=== PATIENT | male | born 1950 | race Caucasian/White ===

== ENCOUNTER → 2019-06-23 | Outpatient (CLI) | payer MEDICARE, OTHER | LOC: COL.RAD 09:45 | DX: Z01.812 Encounter for preprocedural laboratory examination (principal); R22.1 Localized swelling, mass and lump, neck; R91.8 Other nonspecific abnormal finding of lung field | CPT/HCPCS: Q9967 ==

== ENCOUNTER 2019-09-08 08:26 | Inpatient (IN) | payer MEDICARE, OTHER ==
[2019-09-08] VITALS (494 sets, daily range): BP systolic 90–118; BP diastolic 51–80; PULSE 114–126; TEMP 98.3–99.1; O2SAT 84–100
[~2019-09-08] VITALS: Ht 167.6 cm; Wt 85.9 kg
[~2019-09-08 08:26] MED LIST: DECADRON 4MG TAB4 MG PO; NORCO 325 MG-51 TAB PO
[2019-09-08] MEDS ORDERED: NORCO 325 MG-101 TAB PO (08:45)
[2019-09-08] MEDS ORDERED: DECADRON 4MG TAB4 MG PO (08:46)
[2019-09-08] MEDS ORDERED: ZOFRAN8 MG PO (08:47)
[2019-09-08] MEDS ORDERED: ZYRTEC 10MG10 MG PO (08:48)
[2019-09-08] MEDS ORDERED: SENOKOT8.6 MG PO (08:48)
[2019-09-08 09:10] LABS: GRAN # 1.7 (1.4-6.5); GRAN % 53.4 % (42.2-75.2); HEMOGLOBIN 12.2 g/dl (13.5-18.0); LYMPH # 1.3 (1.2-3.4); LYMPH % 38.6 % (20.0-51.0); MEAN CELL VOLUME 92 fl (80.0-100.0); MEAN CORPUSCULAR HEMOGLOBIN 31 pg (27.0-31.0); MEAN CORPUSCULAR HGB CONC 33 g/dl (33.0-37.0); MEAN PLATELET VOLUME 9.5 fl (7.4-10.4); MONO # 0.2 (0.1-0.6); MONO % 7.1 % (1.7-9.3); PLATELET COUNT 51 K/mm3 (130-400); REDCELL DISTRIBUTION WIDTH-CV 14.1 % (11.5-14.5)
[2019-09-08 09:16] LABS: ALBUMIN 4.1 gm/dL (3.5-5.0); CALCIUM 8.8 mg/dL (8.4-10.2); CREATININE, serum 1.21 (0.66-1.25); POTASSIUM 4.2 mmol/L (3.4-5.0)
[2019-09-08 09:17] LABS: HEMATOCRIT 36.6 % (42.0-52.0)
[2019-09-08 09:27] LABS: PROTHROMBIN TIME 11.2 SECONDS (9.7-12.8)
--- NOTE | 2019-09-08 10:30 | NUR ---
received report from ER nurse.
--- NOTE | 2019-09-08 11:00 | NUR ---
pt arrived from ER, stable and and son at bedside. pt on 3L NC, increased him to 4L. stable otherwise.
--- NOTE | 2019-09-08 11:34 | NUR ---
SUPERVISING ARCHITECT student met with the patient and patient's , Kayla and son Jovanny to discuss a discharge plan. The patient is from [place], [place] but is visiting his daughter that lives in [place]. The patient denies DME usage and reports independence with ADLs. The patient's PCP is Dr. Amato. The patient has chemo therapy, Dr. Curtis and Dr. Lomeli follow the patient as well. The patient receives medications from [facility] with no difficulties. The patient does not have advanced directives in the EMR but reports they are in the process of completing them. information services consultant will continue to follow to ensure a safe discharge.
--- NOTE | 2019-09-08 15:20 | NUR ---
DIYA Acuna at bedside going over plan of care with pt and his family.
--- NOTE | 2019-09-08 17:45 | NUR ---
LAB CALLED WITH CRITICAL LAB TROPONIN ELEVATED AT 0.102 WHICH WAS RESULTED AT 0845 THIS MORNING. FINISHED CLOTH CHECKER STATED SHE HAD BEEN TRYING TO REACH ME ALL DAY, HOWEVER I NEVER RECIEVED A PHONE CALL FROM LAB. NOR DID SHE TRY TO CONTACT THE UNIT NUMBER OR THE CHARGE NURSE PHONE. NENITA RAMIREZ WAS NOTIFED AT 1845. TROPONIN WILL BE RECHECKED. PT NOT COMPLAINING OF PAIN.
--- NOTE | 2019-09-08 20:00 | NUR ---
PT is sitting in bed, at bedside. Updated on POC and medications for the evening. Vitals stable. Will continue to monitor.
[2019-09-09] VITALS (462 sets, daily range): BP systolic 92–126; BP diastolic 54–89; PULSE 88–110; TEMP 98–99.1; O2SAT 50–100
[2019-09-09 02:00] LABS: COLLECTION METHOD CLEAN CATCH
[2019-09-09 02:06] LABS: PH 6 (5-8); SQUAMOUS EPITHELIAL None Seen /hpf; URINE APPEARANCE Clear; URINE BACTERIA None Seen /hpf; URINE BILIRUBIN Negative (NEGATIVE); URINE BLOOD Negative (NEGATIVE); URINE COLOR Yellow; URINE GLUCOSE Negative (NEGATIVE); URINE KETONE Negative (NEGATIVE); URINE LEUKOCYTE ESTERASE Negative (NEGATIVE); URINE NITRATE Negative (NEGATIVE); URINE PROTEIN(semi-quant) Negative (NEGATIVE); URINE RBC 0-2 /hpf; URINE UROBILINOGEN Negative (NEGATIVE)
[2019-09-09 06:28] LABS: BASO % 0.3 % (0.0-2.0); GRAN # 1.8 (1.4-6.5); GRAN % 59.5 % (42.2-75.2); LYMPH % 31.6 % (20.0-51.0); MEAN CELL VOLUME 92 fl (80.0-100.0); MEAN CORPUSCULAR HGB CONC 34 g/dl (33.0-37.0); MEAN PLATELET VOLUME 9.8 fl (7.4-10.4); MONO # 0.2 (0.1-0.6); MONO % 7.6 % (1.7-9.3); RED BLOOD COUNT 2.91 M/mm3 (4.20-5.60); REDCELL DISTRIBUTION WIDTH-CV 14.3 % (11.5-14.5)
[2019-09-09 06:35] LABS: CALCIUM 7.4 mg/dL (8.4-10.2); CREATININE, serum 1.07 (0.66-1.25); POTASSIUM 4.4 mmol/L (3.4-5.0)
[2019-09-09 06:49] LABS: HEMATOCRIT 26.9 % (42.0-52.0); HEMOGLOBIN 9.1 g/dl (13.5-18.0); MEAN CORPUSCULAR HEMOGLOBIN 31 pg (27.0-31.0)
[2019-09-09 06:51] LABS: PLATELET COUNT 37 K/mm3 (130-400)
--- NOTE | 2019-09-09 07:00 | NUR ---
Report given to KWAME Farah and KWAME Figueroa.
--- NOTE | 2019-09-09 07:15 | NUR ---
at bedside with patient.
--- NOTE | 2019-09-09 11:15 | NUR ---
at bedside rounding with patient and family.
--- NOTE | 2019-09-09 11:31 | NUR ---
TEST DRIVER student attended clinical rounds with the team. The patient is to have a swallow study and anticipated discharge for 09/10. guest services director will continue to follow.
--- NOTE | 2019-09-09 16:50 | NUR ---
PT TRANSPORTED UPSTAIRS TO ROOM 308. REMAINED STABLE AND SITUATED INTO ROOM. SON AT BEDSIDEW WITH PATIENT.
--- NOTE | 2019-09-09 17:14 | NUR ---
Pt arrives to medical unit rm 308 from ICU via WC, awake and alert, oriented x 3. Physical assessment unremarkable. O2 at 1 L/min via NC. IVF's infusing per orders through right hand site without s/s of complications. No further needs reported. Call light in reach.
--- NOTE | 2019-09-09 19:00 | NUR ---
Pt reports pain in back is starting to increase, requests PRN IV pain medication which is administered per orders. IVF's continue to infuse per orders. Pt's family at bedside. Report with KWAME Su. No further needs reported. Call light in reach.
--- NOTE | 2019-09-09 20:38 | NUR ---
Sitting at bedside. Assessment complete. Lungs clear. Heart sounds normal. Bowels active x4. Pulses strong throughout. Bilateral lower leg edema +1. Bruising present to bilateral forearms-from IV sticks. IV fluids infusing to right wrist at 60 ml/hr as ordered. Rates pain 4/10. Requested PRN norco. Provided to patient. Denies other needs at this time. Call light in reach.
--- NOTE | 2019-09-10 00:06 | NUR ---
Resting in bed. Denies pain. Call light in reach.
[2019-09-10 04:06] VITALS: BP 104/62; PULSE 91; TEMP 99
--- NOTE | 2019-09-10 04:12 | NUR ---
Rating back pain 310. Provided with PRN ranjan at patient request. Denies other needs. Call light in reach.
--- NOTE | 2019-09-10 05:47 | NUR ---
Patient required x2 doses of norco for pain control throughout night. Otherwise uneventful. Resting in bed this AM. remained at bedside throughout night. Denies needs. Call light in reach.
--- NOTE | 2019-09-10 06:57 | NUR ---
Report given to KWAME Ramos
[2019-09-10 07:03] LABS: GRAN # 1.6 (1.4-6.5); GRAN % 65.5 % (42.2-75.2); LYMPH # 0.7 (1.2-3.4); LYMPH % 28.1 % (20.0-51.0); MEAN CELL VOLUME 93 fl (80.0-100.0); MEAN CORPUSCULAR HGB CONC 33 g/dl (33.0-37.0); MEAN PLATELET VOLUME 9.5 fl (7.4-10.4); MONO # 0.2 (0.1-0.6); RED BLOOD COUNT 2.73 M/mm3 (4.20-5.60); REDCELL DISTRIBUTION WIDTH-CV 14.3 % (11.5-14.5)
[2019-09-10 07:07] LABS: CALCIUM 7.5 mg/dL (8.4-10.2); CREATININE, serum 1.01 (0.66-1.25); HEMATOCRIT 25.5 % (42.0-52.0); HEMOGLOBIN 8.4 g/dl (13.5-18.0); MEAN CORPUSCULAR HEMOGLOBIN 31 pg (27.0-31.0); POTASSIUM 4.2 mmol/L (3.4-5.0)
[2019-09-10 07:08] LABS: PLATELET COUNT 36 K/mm3 (130-400)
[2019-09-10 07:25] LABS: TROPONIN-I 0.15 ng/mL (0.000-0.035)
[2019-09-10 08:26] VITALS: BP 125/98; PULSE 92; TEMP 97.7
--- NOTE | 2019-09-10 09:35 | NUR ---
Pt awake and alert upon entry, spouse in room, pain medications asked for and given, no other complaints at this time, shift assessment complete, left Pt call light in reach, bed in lowest position.
[2019-09-10 10:46] VITALS: BP 125/69; PULSE 90; TEMP 98.5
--- NOTE | 2019-09-10 13:10 | NUR ---
Initial visit; Patient thanked Director Of Operations for looking in on him and offering God's blessings.
[2019-09-10 15:26] VITALS: BP 135/77; PULSE 93; TEMP 98.4
--- NOTE | 2019-09-10 18:12 | NUR ---
Pt rested in the room today, diet changed to mechanical soft with thin liquids, some C/O pain during the day and pain medications were given for relief, VS have remained stable.
[2019-09-10 19:45] VITALS: BP 115/72; PULSE 91; TEMP 98.4
--- NOTE | 2019-09-10 20:40 | NUR ---
Resting in bed with at bedside. Assessment complete. Lungs clear. Heart sounds normal. Bowels active x4. Pulses strong throughout. Bilateral lower leg edema +1. Right hand INT flushed without complications. Rating pain 4/10. Reports pain uncontrolled throughout the day. Would like morphine and norco to help get pain under control prior to resting tonight. Provided both medications to patient. Denies other needs at this time. Call light in reach.
--- NOTE | 2019-09-10 22:06 | NUR ---
Patient reports norco and morphine has relieved pain in back. Denies other needs at this time. Call light in reach. at bedside.
[2019-09-11 00:26] VITALS: BP 135/71; PULSE 97; TEMP 97.7
--- NOTE | 2019-09-11 00:27 | NUR ---
Rating pain 3/10. Provided with PRN norco at patient request. Denies other needs. Call light in reach.
[2019-09-11 04:24] VITALS: BP 118/71; PULSE 83; TEMP 98.5
--- NOTE | 2019-09-11 05:03 | NUR ---
Patient requested PRN norco for increasing back pain. Provided to patient. Rating pain 3/10 at this time. Denies other needs. Call light in reach.
--- NOTE | 2019-09-11 05:46 | NUR ---
Patient required x3 doses of norco and x1 dose of morphine for pain control throughout the night. Otherwise uneventful. remained at bedside throughout the night. Denies needs this AM. Call light in reach.
[2019-09-11 06:02] LABS: BASO % 0.4 % (0.0-2.0); GRAN # 1.8 (1.4-6.5); GRAN % 67.3 % (42.2-75.2); LYMPH # 0.7 (1.2-3.4); LYMPH % 25.6 % (20.0-51.0); MEAN CELL VOLUME 94 fl (80.0-100.0); MEAN CORPUSCULAR HGB CONC 33 g/dl (33.0-37.0); MEAN PLATELET VOLUME 9.8 fl (7.4-10.4); MONO # 0.2 (0.1-0.6); MONO % 5.6 % (1.7-9.3); RED BLOOD COUNT 2.75 M/mm3 (4.20-5.60); REDCELL DISTRIBUTION WIDTH-CV 14.5 % (11.5-14.5)
[2019-09-11 06:07] LABS: HEMATOCRIT 25.8 % (42.0-52.0); HEMOGLOBIN 8.5 g/dl (13.5-18.0); MEAN CORPUSCULAR HEMOGLOBIN 31 pg (27.0-31.0)
[2019-09-11 06:08] LABS: PLATELET COUNT 39 K/mm3 (130-400)
[2019-09-11 06:09] LABS: CALCIUM 7.5 mg/dL (8.4-10.2); CREATININE, serum 0.93 (0.66-1.25); POTASSIUM 4.3 mmol/L (3.4-5.0)
--- NOTE | 2019-09-11 06:43 | NUR ---
Report given to KWAME Ramos
[2019-09-11 07:25] VITALS: BP 124/65; PULSE 87; TEMP 98
[2019-09-11] MEDS ORDERED: ELIQUIS 5MG PO (08:38)
[2019-09-11] MEDS ORDERED: PROTONIX 40MG T40 MG PO (08:39)
--- NOTE | 2019-09-11 10:42 | NUR ---
Pt awake and alert, spouse in room, some C/O pain, medications given, shift assessment complete, left Pt call light in reach, bed in lowest position.
[2019-09-11 11:15] VITALS: BP 129/72; PULSE 96; TEMP 98
--- NOTE | 2019-09-11 11:15 | NUR ---
Checked Pt's O2 saturation level 30 minutes post O2 removal, saturation at rest remained between 92 - 94% at rest.
--- NOTE | 2019-09-11 11:15 | NUR ---
ADAN attended clinical rounds. The patient is to tentatively discharge today, 09/11. The patient is to have an exercise oximetery done. ADAN then followed up with the patient and the patient's , Kayla. The patient plans to return home with his in [place]. ADAN presented and explained the IM form to the patient and his . The patient's verbalized understanding, signed, and she was provided a copy. ADAN awaiting the exercise oximetery.
--- NOTE | 2019-09-11 13:17 | NUR ---
The patient qualified for 2 liters of continuous oxygen. ADAN followed up with the patient and his and presented and explained the Patient Choice Form for DME. The patient and his chose [facility]. Patient choice form signed by the patient's and she was provided a copy. ADAN contacted and faxed the oxygen order to Parag at [facility]. The patient's daughter plans to knot picker cloth the oxygen from [facility] and bring it up to the hospital for the patient to use. No additional needs at this time.
--- NOTE | 2019-09-11 17:00 | NUR ---
Pt discharged to home, questions answered, escorted to entrance, Pt left with family via private auto.
== END 2019-09-11 17:02 | disposition home or self-care (01) | DRG 175 ==
LOC: COL.ER 08:26 → MEDICAL 10:16 → ICU 10:16 → MEDICAL 09-09 17:32
PROVIDERS: Emergency Medicine; Nurse Practitioner Family; Physician Assistant; ADMIT Student in an Organized Health Care Education/Training Program
DX: I26.92 Saddle embolus of pulmonary artery without acute cor pulmonale (principal); J96.01 Acute respiratory failure with hypoxia; I21.A1 Myocardial infarction type 2; D61.818 Other pancytopenia; C78.00 Secondary malignant neoplasm of unspecified lung; C77.9 Secondary and unspecified malignant neoplasm of lymph node, unspecified; I82.402 Acute embolism and thrombosis of unspecified deep veins of left lower extremity; F17.210 Nicotine dependence, cigarettes, uncomplicated; C14.0 Malignant neoplasm of pharynx, unspecified; D75.82 Heparin induced thrombocytopenia (HIT); M48.54XD Collapsed vertebra, not elsewhere classified, thoracic region, subsequent encounter for fracture with routine healing; I95.9 Hypotension, unspecified; R00.0 Tachycardia, unspecified; Z79.891 Long term (current) use of opiate analgesic; Z88.0 Allergy status to penicillin; Z92.3 Personal history of irradiation
CPT/HCPCS: 99222-AI; 99232-AI; 99233-AI; 99239; A9284; C9113; J1650; J2270; J2405; J7030; J8540; Q9967

== ENCOUNTER 2019-11-24 08:38 | Day surgery (SDC) | payer MEDICARE, OTHER ==
[~2019-11-24] VITALS: Ht 165.1 cm; Wt 76.5 kg
[~2019-11-24 08:38] MED LIST changes: +ELIQUIS 5MG PO; +NORCO 325 MG-101 TAB PO; +PROTONIX 40MG T40 MG PO; +SENOKOT8.6 MG PO; +ZOFRAN8 MG PO; +ZYRTEC 10MG10 MG PO
[2019-11-24 09:20] VITALS: BP 150/84; PULSE 74; TEMP 97.3
[2019-11-24] MEDS ORDERED: PROAIR HFA0.09 MG/AC IH (09:31)
[2019-11-24] MEDS ORDERED: NORCO 325 MG-101 TAB PO (09:31)
[2019-11-24] MEDS ORDERED: XARELTO10 MG PO (09:33)
[2019-11-24] MEDS ORDERED: ATIVAN 1MG T1 MG/TAB PO (09:33)
[2019-11-24] MEDS ORDERED: DIFLUCAN 40M40 MG/ML PO (09:37)
[2019-11-24] MEDS ORDERED: OMNICEF 300MG300 MG PO (09:38)
--- NOTE | 2019-11-24 09:40 | NUR ---
PATIENT POOR HISTORIAN, SO AND DAUGHTER GAVE THE MEDICAL HISTORY AND MED LIST.
[2019-11-24 13:24] VITALS: BP 95/59; PULSE 65; TEMP 97.4
--- NOTE | 2019-11-24 13:32 | NUR ---
TO RM 1 PER CART FROM PACU. ALERT ORIENTED X3, TALKING TO STAFF AND FAMILY. DENIES PAIN OR DISCOMFORT DENIES NAUSEA OR VOMITING DRESSING CLEAN DRY INTACT.
[2019-11-24 13:40] VITALS: BP 126/60; PULSE 65
--- NOTE | 2019-11-24 13:40 | NUR ---
MORE AWAKE AND ASKING WHEN HE CAN GO HOME. EXPLAINED THE REQUIREMENTS TO GO HOME. RECEIVED CHOC. COX.
[2019-11-24 14:00] VITALS: BP 139/72; PULSE 71
--- NOTE | 2019-11-24 14:00 | NUR ---
PATIENT COUGHING AND STATED HE HAS TROUBLE AFTER EATING DUE TO THE SCAR TISSUE FROM RADIATION. AMBULATED TO BATHROOM WITH ASSIST AND TOLERATED WELL VOIDED AND AMBULATED BACK TO BED. RESTING QUIETLY
--- NOTE | 2019-11-24 14:15 | NUR ---
RECEIVED DISCHARGE INSTRUCTIONS AND VERBALIZED UNDERSTANDING. AND DAUGHTER AT BEDSIDE. SIGNED DISCHARGE PAPERS. DAUGHTER WENT TO GET CAR AND ASSISTED PATIENT DRESSED.
--- NOTE | 2019-11-24 14:33 | NUR ---
DISCHARGED PER WC BY NURSING STAFF TO PRIVATE CAR IN CARE OF AND DAUGHTER
== END 2019-11-24 14:33 | disposition home or self-care (01) ==
LOC: SDCO 08:38
DX: C09.0 Malignant neoplasm of tonsillar fossa (principal); C77.0 Secondary and unspecified malignant neoplasm of lymph nodes of head, face and neck; C78.01 Secondary malignant neoplasm of right lung; C78.02 Secondary malignant neoplasm of left lung; F17.210 Nicotine dependence, cigarettes, uncomplicated; J44.9 Chronic obstructive pulmonary disease, unspecified; K21.9 Gastro-esophageal reflux disease without esophagitis; G89.29 Other chronic pain; F41.9 Anxiety disorder, unspecified; Z79.01 Long term (current) use of anticoagulants; Z86.718 Personal history of other venous thrombosis and embolism; Z86.711 Personal history of pulmonary embolism; Z88.8 Allergy status to other drugs, medicaments and biological substances; Z88.0 Allergy status to penicillin; Z98.52 Vasectomy status; Z92.3 Personal history of irradiation; Z92.21 Personal history of antineoplastic chemotherapy
CPT/HCPCS: C1788; J0690; J2704; J3010; J7120

== ENCOUNTER 2019-12-04 06:03 | Day surgery (SDC) | payer MEDICARE, OTHER ==
[~2019-12-04] VITALS: Ht 167.6 cm; Wt 72.7 kg
[~2019-12-04 06:03] MED LIST changes: +ATIVAN 1MG T1 MG/TAB PO; +DIFLUCAN 40M40 MG/ML PO; +OMNICEF 300MG300 MG PO; +PROAIR HFA0.09 MG/AC IH; +XARELTO10 MG PO
[2019-12-04] MEDS ORDERED: LEVAQUIN 5500 MG/TA1 PO (06:57)
[2019-12-04] MEDS ORDERED: CLARITIN REDITA10 MG PO (06:57)
[2019-12-04 07:02] LABS: ALBUMIN 3.7 gm/dL (3.5-5.0); CALCIUM 10.8 mg/dL (8.4-10.2); CREATININE, serum 1.11 (0.66-1.25); POTASSIUM 3.1 mmol/L (3.4-5.0)
[2019-12-04 07:05] VITALS: BP 113/76; PULSE 88; TEMP 97.3
[2019-12-04 08:30] VITALS: BP 116/69; PULSE 73
--- NOTE | 2019-12-04 08:30 | NUR ---
Patient returns to room 8 per cart from surgery and is awake and alert. Temp 96.9 and warm blankets on. Peg tube site covered with gauze dressing and is dry. Abdomen soft and rounded. IV fluids infusing and site is free of redness. Siderails up x2 and call light in reach. Family in room.
[2019-12-04 08:45] VITALS: BP 146/76; PULSE 70
--- NOTE | 2019-12-04 08:45 | NUR ---
Room air sats 95%. Resting and family in room. Chloe Conti in the room and talks with patient and family re: any needs and getting feedings and supplies. Patient is taking few ice chips and continues to cough and expectorate thick phelgm.
[2019-12-04 09:00] VITALS: BP 138/71; PULSE 69
--- NOTE | 2019-12-04 09:00 | NUR ---
Resting and room air sats 97%.
[2019-12-04 09:15] VITALS: BP 134/80; PULSE 79
--- NOTE | 2019-12-04 09:15 | NUR ---
Taking ice chips. Family in room.
[2019-12-04 09:30] VITALS: BP 141/71; PULSE 73
--- NOTE | 2019-12-04 09:30 | NUR ---
Parimutuel Ticket Cashier here and talks with the patient and family re: feedings and nutrition.
--- NOTE | 2019-12-04 09:50 | NUR ---
Given teaching instructions for feedings at home. Shown daughter and spouse how to administer feeding and stressed importance of flushing PEG tube before and after feeding. Provided measuring glasses, medication cups, and 2 60cc syringes. Also given paper tape and gauze dressing to use as needed. Provided education packet for the above and all verbalzied understanding of these. Patient will meet with primary care physician on Saturday to get medications switched to elixir form if possible. IV discontinued and site is free of redness.
--- NOTE | 2019-12-04 10:00 | NUR ---
Up to the bathroom and gait is steady. Patient able have BM and returns to room. Assisted patient with dressing.
--- NOTE | 2019-12-04 10:31 | NUR ---
Patient dismissed to home driven by daughter per private vehicle and taken to the front door per wheelchair and assisted into car by this RN with instructions in hand.
--- NOTE | 2019-12-04 10:33 | NUR ---
emu farm worker met with patient, spouse, and daughter to discuss assistance with obtaining PEG tube feedings. Patient will discharge to daughter's home, in [place], [place]. Worker provided durable medical equipment options and spouse and daughter chose [facility] and signed Choice form. Worker provided referral and faxed clinical information/orders to [facility]. Daughter and spouse agreeable to stop by home medical on way home to pickler helper feedings. Patient and daughter state that they do not desire assistance from a home health agency for tube feeding assistance. Worker collaborated with fabio Hunter and KWAME Starkey regarding the above information.
== END 2019-12-04 10:31 | disposition home or self-care (01) ==
LOC: SDCO 06:03
PROVIDERS: Surgery
DX: C09.9 Malignant neoplasm of tonsil, unspecified (principal); R13.10 Dysphagia, unspecified; C77.0 Secondary and unspecified malignant neoplasm of lymph nodes of head, face and neck; C78.01 Secondary malignant neoplasm of right lung; C78.02 Secondary malignant neoplasm of left lung; F17.210 Nicotine dependence, cigarettes, uncomplicated; J44.9 Chronic obstructive pulmonary disease, unspecified; K21.9 Gastro-esophageal reflux disease without esophagitis; G89.29 Other chronic pain; Z79.01 Long term (current) use of anticoagulants; Z86.711 Personal history of pulmonary embolism; Z86.718 Personal history of other venous thrombosis and embolism; Z88.8 Allergy status to other drugs, medicaments and biological substances; Z88.0 Allergy status to penicillin; Z98.52 Vasectomy status; Z92.3 Personal history of irradiation; Z92.21 Personal history of antineoplastic chemotherapy
CPT/HCPCS: J0690; J2704; J7120